=== PATIENT | female | born 1955 | race Caucasian/White ===

== ENCOUNTER 2019-01-04 14:27 | Observation (INO) | payer BC ==
[~2019-01-04] VITALS: Ht 160 cm; Wt 72.6 kg
[2019-01-04] MEDS ORDERED: SODIUM CHLORIDE FLUSH 10ML SYR IVF ONE (15:00)
[2019-01-04] MEDS ORDERED: ASPIRIN 81 MG TABLET CHEW PO ONE (15:00)
[2019-01-04 15:19] LABS: BASOPHILS # (AUTO) 0.12 x10^3/uL (0-0.1); BASOPHILS % (AUTO) 1 % (0-1); EOSINOPHILS # (AUTO) 0.17 x10^3/uL (0-0.4); EOSINOPHILS % (AUTO) 2 % (1-7); LYMPHOCYTES # (AUTO) 2.64 x10^3/uL (1-3.4); LYMPHOCYTES % (AUTO) 29 % (22-44); MD NO; MEAN CORPUSCULAR HEMOGLOBIN 31.5 pg (27.0-34.8); MEAN CORPUSCULAR HGB CONC 33.1 g/dL (32.4-35.8); MEAN PLATELET VOLUME 8.9 fL (7.4-10.4); MONOCYTES # (AUTO) 0.22 x10^3/uL (0.2-0.8); MONOCYTES % (AUTO) 2 % (2-9); NEUTROPHILS # (AUTO) 5.88 x10^3/uL (1.8-6.8); NEUTROPHILS % (AUTO) 65 % (42-75); PLATELET COUNT 278 x10^3/uL (130-400); RED BLOOD COUNT 4.44 x10^6/uL (3.82-5.3); RED CELL DISTRIBUTION WIDTH 12.8 % (9.6-15.2)
[2019-01-04 15:29] LABS: ALANINE AMINOTRANSFERASE 22 U/L (12-78); ANION GAP 7 mmol/L (5-15); CALCIUM 9.3 mg/dL (8.5-10.1); CHLORIDE 108 mmol/L (98-107); CREATININE 0.93 mg/dL (0.55-1.02)
[2019-01-04 15:33] LABS: ALKALINE PHOSPHATASE 82 U/L (45-117); BILIRUBIN,TOTAL 0.4 mg/dL (0.2-1.0); TROPONIN I < 0.015 ng/mL (0.000-0.045)
[2019-01-04] MEDS ORDERED: NITROGLYCERIN SINGLE TAB 0.4 MG SL ONE (15:41)
[2019-01-04] MEDS ORDERED: ASPIRIN 81 MG TABLET CHEW ONE (15:41)
[2019-01-04] MEDS: NITROGLYCERIN SINGLE TAB 0.4 MG SL PRN ×3 (15:45→15:57)
[2019-01-04] MEDS ORDERED: PRIMPRO PO (15:59)
--- NOTE | 2019-01-04 16:00 | NUR ---
PT WITH ONLY MINIMAL RELIEF FOLLOWING NTG SL AND DIFFICULT TO GUAGE D/T INTERMITTENT NATURE OF CP. VSS/UPDATED IN COMPUTER. ERP IN TO REASSESS-PT TO BE ADMITTED FOR OBSERVATION AND POSSIBLE STRESS TESTING. CALL LIGHT WITHIN REACH. WARM BLANKET PROVIDED.
[2019-01-04] MEDS ORDERED: NITROGLYCERIN 0.4 MG BOTTLE (25 TABS) SL PRN (16:30)
[2019-01-04] MEDS ORDERED: OXYcodone IR 5MG TABLET PO PRN (16:30)
[2019-01-04] MEDS ORDERED: morphine SULFATE 10 MG/ML, 1ML IVPush PRN (16:30)
[2019-01-04] MEDS ORDERED: ACETAMINOPHEN 325 MG TABLET PO PRN (16:30)
[2019-01-04] MEDS ORDERED: NITROGLYCERIN 0.4 MG/SPRAY SL PRN (16:30)
[2019-01-04] MEDS ORDERED: SODIUM CHLORIDE FLUSH 10ML SYR IVF PRN (16:30)
[2019-01-04] MEDS ORDERED: morphine SULFATE 10 MG/ML, 1ML IV PRN (16:30)
--- NOTE | 2019-01-04 16:39 | NUR ---
PT REPORTS LESS FREQUENCY AND INTENSITY IN SHARP L SIDED CP SINCE NTG. ALL QUESTIONS ANSWERED FROM PT AND SPOUSE. PT TO XRAY FOR ADD ON ORDERS BY [facility].
[2019-01-04 17:08] LABS: CHOL/HDL RATIO 3.1; LDL/HDL RATIO 1.6 (0.5-3.0)
[2019-01-04] MEDS: METHYL SALICYLATE/MENTHOL CRM 85GM TP SCH ×2 (17:53→20:55)
[2019-01-04] MEDS ORDERED: ESTR1TAB5 PO (17:57)
[2019-01-04] MEDS ORDERED: IBUP200T49 PO (17:58)
[2019-01-04] MEDS ORDERED: MAGN300C PO (17:58)
[2019-01-04 19:16] VITALS: BP 125/75
[2019-01-04] MEDS: SODIUM CHLORIDE FLUSH 10ML SYR IVF SCH (20:55)
[2019-01-04 22:13] LABS: TROPONIN I < 0.015 ng/mL (0.000-0.045)
[2019-01-05 01:30] VITALS: BP 130/77
[2019-01-05 04:42] LABS: TROPONIN I < 0.015 ng/mL (0.000-0.045)
[2019-01-05] MEDS ORDERED: ASPIRIN 325 MG TABLET EC PO SCH (06:00)
[2019-01-05] MEDS: METHYL SALICYLATE/MENTHOL CRM 85GM TP SCH ×2 (06:26→11:13)
[2019-01-05 07:39] VITALS: BP 118/71
[2019-01-05] MEDS: SODIUM CHLORIDE FLUSH 10ML SYR IVF SCH (09:00)
[2019-01-05 13:04] VITALS: BP 128/83
[2019-01-05] MEDS ORDERED: FLU VAC QS 19-20(4YR UP)CEL/PF 0.5 ML IM-VACC ONE (14:30)
== END 2019-01-05 15:24 | disposition home or self-care (01) ==
LOC: SUATTDRO 16:11 → ED 16:45 → EDIP 16:46 → 5SO 17:31 → DCLOUNGE 01-05 15:12
PROVIDERS: ADMIT Hospitalist; ATTEND Internal Medicine
DX: R07.89 Other chest pain (principal); I20.9 Angina pectoris, unspecified; G62.9 Polyneuropathy, unspecified; Z91.012 Allergy to eggs; Z91.018 Allergy to other foods; Z23 Encounter for immunization
CPT/HCPCS: 36415; 71045; 72040; 72072; 80053; 80061; 83880; 84484; 85025; 85379; 90471; 90674; 93005; 93017; 93306; 99284; G0378

== ENCOUNTER → 2019-04-06 | Outpatient (CLI) | payer BC ==
[~2019-04-06] MED LIST: ESTR1TAB5 PO; IBUP200T49 PO; MAGN300C PO; PRIMPRO PO
== END | disposition home or self-care (01) ==
LOC: CFH 12:40
PROVIDERS: ATTEND Family Medicine
DX: Z12.31 Encounter for screening mammogram for malignant neoplasm of breast (principal); N64.89 Other specified disorders of breast
CPT/HCPCS: 77067